=== PATIENT | female | born 1990 | race Caucasian/White ===

== ENCOUNTER → 2025-04-20 12:34 | Outpatient (CLI) | payer OTHER, SELFPAY | PROVIDERS: Visit Provider Chiropractor | DX: R30.0 Dysuria (principal) | CPT/HCPCS: 87077; 87086; 87186 ==

== ENCOUNTER 2025-05-14 12:21 | Emergency (ER) | payer OTHER, SELFPAY ==
[2025-05-14 12:29] VITALS: BP 138/63; PULSE 111; RESP 17; TEMP 36.4; O2SAT 99; BMI 21.7
--- NOTE | 2025-05-14 14:02 | ED.NAVMDI ---
HPI - Nausea/Vomiting/Diarrhea <Andrew Benz PA-C - Last Filed: 05/14/25 15:15> General Chief complaint: Nausea/Vomiting/Diarrhea Stated complaint: watery diarrhea x 10 days. dehydrated Time Seen by Provider: 05/14/25 13:19 Source: patient Mode of arrival: Ambulatory History of Present Illness HPI Narrative: 34-year-old female with past medical history fibromyalgia, ADHD, anxiety presents to the ED with 2 weeks of watery diarrhea. Patient endorses having 3-7 episodes of diarrhea daily. Patient states the diarrhea is getting better. Patient has not taken anything for it. Patient did mentioned that she was on antibiotics for a UTI prior to when this diarrhea started. Patient denies fever, chills, chest pain, shortness of breath, vomiting, abdominal pain, dysuria, lightheadedness, dizziness, syncope. Patient endorses intermittent nausea which she says is baseline for her. Related Data Home Medications ?Medication ?Instructions ?Recorded ?Confirmed duloxetine PO 04/20/25 04/20/25 Allergies Allergy/AdvReac Type Severity Reaction Status Date / Time hydrocodone (From Vicodin) AdvReac Unknown Vomiting Verified 05/14/25 12:29 Review of Systems <Andrew Benz PA-C - Last Filed: 05/14/25 15:15> Constitutional Constitutional: Denies chills, Denies fatigue, Denies fever(s), Denies frequent falls, Denies lethargy and Denies weakness Eyes Eyes: Denies change in vision, Denies eye discharge, Denies irritation and Denies loss of vision ENT Ears, Nose, Mouth, and Throat: Denies change in voice, Denies dizziness, Denies neck pain, Denies sore throat and Denies throat swelling Cardiovascular Cardiovascular: Denies chest pain, Denies irregular heart rhythm, Denies lightheadedness, Denies palpitations, Denies dyspnea, Denies dyspnea on exertion and Denies orthopnea Respiratory Respiratory: Denies cough, Denies dyspnea, Denies dyspnea on exertion and Denies wheezing Gastrointestinal Gastrointestinal: Denies abdominal pain, Denies change in bowel habits, Reports diarrhea, Reports nausea and Denies vomiting Musculoskeletal Musculoskeletal: Denies neck pain and Denies numbness Integumentary/Breasts Skin/Breast: Denies pruritus, Denies erythema, Denies rash and Denies wounds Neurologic Neurologic: Denies behavioral changes, Denies confusion, Denies dizziness, Denies frequent falls, Denies loss of vision, Denies numbness and Denies weakness Psychiatric Psychiatric: Denies anxiety, Denies behavioral changes, Denies confusion, Denies depression, Denies homicidal ideation and Denies suicidal ideation Endocrine Endocrine: Denies fatigue, Denies flushing and Denies palpitations Hematologic/Lymphatic Hematologic/Lymphatic: Denies easy bruising Allergic/Immunologic Allergic/Immunologic: Denies urticaria, Denies throat swelling and Denies wheezing Patient History <Andrew Benz PA-C - Last Filed: 05/14/25 15:15> Social History Smoking Status: Current every day smoker Smoking Status: Current every day smoker Exam <Andrew Benz PA-C - Last Filed: 05/14/25 15:15> Narrative Exam Narrative: Const General:?cooperative, healthy appearing and comfortable HENMT Head:?normal to inspection Ears:?hearing grossly normal bilaterally Nose:?external nose normal Face and sinus:?normal facial exam and sinuses nontender Mouth:?oral mucosae normal Throat:?posterior oropharynx normal Eyes General:?appearance normal, both eyes and all related structures Neck Neck:?normal visual inspection and no lymphadenopathy noted Resp Effort & Inspection:?normal respiratory effort Auscultation:?clear to auscultation bilaterally Cardio Rate:?regular rate Rhythm:?regular rhythm GI Abdomen is soft, nondistended, nontender to palpation. Neuro General:?patient alert, patient awake and patient oriented x3 Initial Vital Signs Initial Vital Signs: Vital Signs Temperature 97.6 F 05/14/25 12:29 Pulse Rate 111 H 05/14/25 12:29 Respiratory Rate 17 05/14/25 12:29 Blood Pressure 138/63 05/14/25 12:29 Pulse Oximetry 99 05/14/25 12:29 Oxygen Delivery Method Room Air 05/14/25 12:29 <Helga Merida DO - Last Filed: 05/18/25 08:01> Initial Vital Signs Initial Vital Signs: Vital Signs Temperature 97.6 F 05/14/25 12:29 Pulse Rate 111 H 05/14/25 12:29 Respiratory Rate 17 05/14/25 12:29 Blood Pressure 138/63 05/14/25 12:29 Pulse Oximetry 99 05/14/25 12:29 Oxygen Delivery Method Room Air 05/14/25 12:29 Course <Andrew Benz PA-C - Last Filed: 05/14/25 15:15> Orders Ordered: ED Orders 05/14/25 13:30 GI Panel (Film Array) Stat Vital Signs Vital signs: Vital Signs - 8 hr 05/14/25 12:29 Temperature 97.6 F Pulse Rate 111 H Respiratory Rate 17 Blood Pressure 138/63 Pulse Oximetry 99 Oxygen Delivery Method Room Air <Helga Merida DO - Last Filed: 05/18/25 08:01> Orders Ordered: ED Orders 05/14/25 13:30 GI Panel (Film Array) Stat Vital Signs Vital signs: Vital Signs - 8 hr 05/14/25 12:29 Temperature 97.6 F Pulse Rate 111 H Respiratory Rate 17 Blood Pressure 138/63 Pulse Oximetry 99 Oxygen Delivery Method Room Air MDM - Nausea/Vomiting/Diarrhea <Andrew Benz PA-C - Last Filed: 05/14/25 15:15> Lab Data Labs: Lab Results 05/14/25 Range/Units 13:30 Stl C. cayetanensis PCR Not detected (Not Detect) Stool Rotavirus (PCR) Not detected (Not Detect) Stool Adenovirus (PCR) Not detected (Not Detect) Stool Astrovirus (PCR) Not detected (Not Detect) Stool Cryptosporidium PCR Not detected (Not Detect) Stl E.coli Shiga Tox PCR Not detected (Not Detect) St Sh/Enteroin Ecoli PCR Not detected (Not Detect) Stl Enterotoxigenic E PCR Not detected (Not Detect) Stool EPEC (PCR) Not detected (Not Detect) Stl E. histolytica PCR Not detected (Not Detect) Stool Giardia Lamblia PCR Not detected (Not Detect) Stool Sapovirus (PCR) Not detected (Not Detect) Stl P. shigelloides PCR Not detected (Not Detect) St Y.enterocolitica PCR Not detected (Not Detect) Stool Vibrio (PCR) Not detected (Not Detect) Stl Vibrio cholerae PCR Not detected (Not Detect) Stl Enteroaggr Ecoli PCR Not detected (Not Detect) Stl Norovirus GI/GII PCR Not detected (Not Detect) Campylobacter (PCR) Not detected (Not Detect) C. difficile Tox (PCR) Not detected (Not Detect) Salmonella (PCR) Not detected (Not Detect) MDM Narrative Medical decision making narrative: 34-year-old female with past medical history fibromyalgia, ADHD, anxiety presents to the ED with 2 weeks of watery diarrhea. Physical exam is reassuring for a benign abdomen. No imaging indicated at this time. Patient has brought a stool sample, will run a GI panel. Will reassess. GI panel was negative. Recommend loperamide, probiotics, BRAT diet, good hydration. Recommend follow-up with PCP. ED return precautions were discussed with patient. Patient verbalized understanding. Medical records reviewed: Yes <Helga Merida, - Last Filed: 05/18/25 08:01> Lab Data Labs: Lab Results 05/14/25 Range/Units 13:30 Stl C. cayetanensis PCR Not detected (Not Detect) Stool Rotavirus (PCR) Not detected (Not Detect) Stool Adenovirus (PCR) Not detected (Not Detect) Stool Astrovirus (PCR) Not detected (Not Detect) Stool Cryptosporidium PCR Not detected (Not Detect) Stl E.coli Shiga Tox PCR Not detected (Not Detect) St Sh/Enteroin Ecoli PCR Not detected (Not Detect) Stl Enterotoxigenic E PCR Not detected (Not Detect) Stool EPEC (PCR) Not detected (Not Detect) Stl E. histolytica PCR Not detected (Not Detect) Stool Giardia Lamblia PCR Not detected (Not Detect) Stool Sapovirus (PCR) Not detected (Not Detect) Stl P. shigelloides PCR Not detected (Not Detect) St Y.enterocolitica PCR Not detected (Not Detect) Stool Vibrio (PCR) Not detected (Not Detect) Stl Vibrio cholerae PCR Not detected (Not Detect) Stl Enteroaggr Ecoli PCR Not detected (Not Detect) Stl Norovirus GI/GII PCR Not detected (Not Detect) Campylobacter (PCR) Not detected (Not Detect) C. difficile Tox (PCR) Not detected (Not Detect) Salmonella (PCR) Not detected (Not Detect) Discharge Plan Departure Patient Disposition: Home Clinical Impression: Diarrhea Qualifiers: Diarrhea type: unspecified type Qualified Code(s): R19.7 - Diarrhea, unspecified Instructions: Diarrhea, Probiotics May Decrease Intensity and Duration of Diarrhea Due to Infection Activity Restrictions/Additional Instructions: You were evaluated in the emergency department today for diarrhea. The GI panel that was run on your stool sample was negative. It is likely that your diarrhea was set off by the course of antibiotics that you took for the UTI. You may take loperamide, which also goes by the brand name Imodium and available [id number] in the drug store. Please take a 4 mg dose, follow with a 2 mg dose after every episode of diarrhea. Please do not exceed 16 mg a day. Please stop taking it as soon as the diarrhea tapers down. Taking probiotics can also reduce the intensity and duration of diarrhea. Yogurt is a common probiotic. The BRAT diet which consists of bananas, rice, apples, toast will also help reduce the diarrhea. Please continue good hydration. Please follow-up with your PCP as soon as possible. Return to the ED if you have worsening symptoms. Prescriptions: No Action duloxetine PO Referrals: Miscellaneous,Doctor, MD [Primary Care Provider, Medical] Stand Alone Forms: Patient Portal/API ED Sign-out <Helga Merida DO - Last Filed: 05/18/25 08:01> Cosign ED Attending Goyo Attestation: I was available for consultation.
[2025-05-14 14:58] LABS: Clostridium difficile toxin AB Not Detected (Not Detect); Enteroaggregative E.coli Not Detected (Not Detect); Enteropathogenic E.coli Not Detected (Not Detect); Enterotoxigenic E.coli It/st Not Detected (Not Detect); Plesiomonsa shigelloides Not Detected (Not Detect); Shiga-like toxin-prod E.coli Not Detected (Not Detect)
[2025-05-14 15:31] VITALS: BP 119/71; PULSE 94; RESP 16; TEMP 37.7; O2SAT 95
== END 2025-05-14 15:28 | disposition home or self-care (01) ==
PROVIDERS: Emergency Provider Student in an Organized Health Care Education/Training Program
DX: R19.7 Diarrhea, unspecified (principal)
CPT/HCPCS: 87507; 99281; 99283